=== PATIENT | male | born 1950 | race Hispanic/Latino ===

== ENCOUNTER 2024-10-11 22:53 | Emergency (ER) | payer MEDICARE, OTHER, SELFPAY ==
[2024-10-11 22:57] VITALS: BP 164/68
[2024-10-11 23:03] LABS: Glucose - Point of Care 460 mg/dl (70-99)
[2024-10-11 23:29] VITALS: BMI 25.7
--- NOTE | 2024-10-11 23:32 | ED.GENMED ---
History of Present Illness
General
Chief Complaint: Breathing Problem
Source: patient
Exam Limitations: none
Time Seen by Provider: 10/11/24 23:27
Nursing documentation reviewed up to this point in time: agreed with
History of Present Illness
History of Present Illness:
74-year-old male hypertensive diabetic on metformin 1000 mg a day nondrinker non-smoker presents with elevated blood sugar polydipsia polyuria also checked his his pulse ox it was low, he had a pulse ox from when he had COVID years ago, denies chest
pain or shortness of breath no nausea or vomiting no chest pain tells me his blood sugars usually in the 2-2 50 range, A1c was in the 7 range, no abdominal pain
Past History
Past History
ED Past Medical History: HTN and NIDDM
ED Past Surgical History: None
Social History
Tobacco: Non-smoker
Alcohol: None
Drug: None
Personal:
Living: with family
Employment: Employed
Family History
Family History: Diabetes
Review of Systems
Review of Systems
All Other Systems: Not applicable
Constitutional: Reports fatigue; Denies fever
EENT: Reports no symptoms
Respiratory: Reports no symptoms; Denies cough or trouble breathing
Cardiac: Reports no symptoms
ABD/GI: Reports no symptoms; Denies abdominal pain or diarrhea
Neurological: Reports no symptoms
Endocrine: Reports polyuria and polydipsia
Hematologic/Lymphatic: Reports no symptoms
Psychiatric: Reports no symptoms
Phy Exam
Physical Exam
Physical Exam:
Physical Exam
General: no apparent distress, not acutely ill
Neck: No jaundice
Heart: s1/s2 regular rate and rhythm, no murmur. equal radial pulses.
Lungs: no acute respiratory distress. clear bilaterally
Abdomen: Nontender
Neuro: alert and oriented. no focal neurological deficits
Skin: no rash
Psychiatric: well kept. interactive and cooperative
Extremities: no edema.
Scores
Heart Failure Risk
Heart Failure Risk Score: Not Applicable
Course
Orders/Labs/Results
Orders:
Orders
10/11/24 22:59
Accucheck Once [Bedside Glucose Monitoring-ONCE] As Directed
10/11/24 23:07
Electrocardiogram (*1) Urgent
Reason for Study: Shortness of Breath
EKG- Treatment ONCE
10/11/24 23:11
B-Hydroxybutyrate Urgent
Comprehensive Metabolic Panel Urgent
10/11/24 23:35
Add On- LAB Urgent
Tests Added?: hemoglovin a1c
10/11/24 23:36
Complete Blood Count/With Diff Urgent
Glycohemoglobin (HgbA1c) Urgent
CR Chest - 2 Views Urgent
Comment:
Reason For Exam: sob
10/11/24 23:38
Troponin I Urgent
10/12/24 00:27
0.9% Sodium Chloride 1000 ml [Nss] 1,000 ml IV BOLUS
10/12/24 01:55
METFORMIN HCl [Glucophage] 1,000 mg PO NOW STA
Abnormal Lab Results
10/11/24 10/11/24 10/11/24
23:02 23:11 23:36
WBC 4.3 L 10^3/uL
(4.8-10.8)
RBC 4.16 L 10^6/uL
(4.70-6.10)
Hgb 12.3 L g/dL
(13.0-18.0)
Hct 34.0 L %
(39.0-52.0)
RDW 15.7 H %
(11.5-14.5)
Abs Immat Gran (auto) 0.1 H 10^3/uL
(0-0.05)
Absolute Lymphs (auto) 0.9 L 10^3/uL
(1.2-3.4)
Immature Gran % 2.1 H %
(0-0.5)
Sodium 133 L mmol/L
(135-145)
Glucose 460 H* mg/dl
(70-99)
Total Bilirubin 1.5 H mg/dl
(0.2-1.3)
Alkaline Phosphatase 197 H U/L
(38-126)
POC Glucose 460 H* mg/dl
(70-99)
10/12/24
01:45
WBC
RBC
Hgb
Hct
RDW
Abs Immat Gran (auto)
Absolute Lymphs (auto)
Immature Gran %
Sodium
Glucose
Total Bilirubin
Alkaline Phosphatase
POC Glucose 328 H mg/dl
(70-99)
10/11/24 23:36
10/11/24 23:11
Vital Signs
Initial and Last Documented VS:
Initial Vital Signs
Pulse Resp BP Pulse Ox
66 20 164/68 97
10/11/24 22:57 10/11/24 22:57 10/11/24 22:57 10/11/24 22:57
Last Documented Vital Signs
Pulse Resp BP Pulse Ox
53 16 154/65 93
10/12/24 01:30 10/12/24 01:30 10/12/24 01:00 10/12/24 01:30
MDM/Problems Addressed
Differential Diagnosis Includes:
HHNK DKA uncontrolled diabetes occult pulmonary respiratory cardiac issue
MDM/Problems Addressed:
Suspect pulse ox was a spurious value at home will check EKG chest x-ray labs A1c
Chronic conditions affecting care: DM
Acute Exacerbation and/or Progression of Chronic Illness: DM and HTN
*Radiology
Radiology exam reviewed: preliminary read by ED provider
*Pulse Oximetry
Patient hypoxic: no
*EKG
Interpreted by ED Provider?: Yes
Interpretation: normal
Comparison EKG: no comparison EKG present
Heart Rate: 7
Rate: normal
Rhythm: sinus
Ischemia: no ischemia
*Planning Aide Interpretation
Rate: normal
Interpretation: normal
Heart Rate: 7
Rhythm: sinus
*Critical Care Note
Total Time (30-74mins, 75-104mins- exclusive of procedures): Not Applicable
Update Note
Update Note:
Update labs noted chest x-ray and EKG troponin noted will start on saline patient overall well-appearing suspect he can go home of his getting needs some increase in his diabetes regiment
2 AM reviewed with patient previously on glipizide that was stopped for 5 years ago due to low blood sugar he is on metformin at thousand a day has been takes in the morning shared decision making, we will increase his metformin however follow-up
with his dozer operator tomorrow or later this week
ED Attending Note
-
Portions of this chart may have been created with voice recognition software.� Occasional wrong word or��sound alike� substitutions may have occurred due to the inherent limitations of voice recognition software.
Discharge Plan
Departure
Patient Disposition: Home (Routine Discharge)
Date of Disposition: 10/12/24
Time of Disposition: 01:54
Patient with high blood pressure during this ER visit?: No
Condition: Good
Discharge Problem:
Type 2 diabetes mellitus without complications, Hyperglycemia due to type 2 diabetes mellitus
Instructions: Type 2 Diabetes (DC)
Prescriptions:
New
metformin 1,000 mg tablet
1,000 mg PO BIDWMEAL Qty: 90 6RF
No Action
atorvastatin 40 MG tablet
20 mg PO HS
amlodipine 5 MG tablet
7.5 mg PO HS
tamsulosin 0.4 mg Capsule
0.8 mg PO AMHS
tadalafil 5 mg Tablet
5 mg PO DIRECTED
Rx Instructions:
twice a week
meclizine 25 mg tablet
25 mg PO TID PRN (Reason: dizziness) Qty: 14 0RF
Referrals:
Beto Rodriguez MD [Family Provider] - Next open appointment
Activity Restrictions/Additional Instructions:
Increase your metformin to 1000 mg twice a day with meals, call your primary care provider tomorrow to arrange follow-up care
Interventions
Interventions:
*Risk Screen - Suicide Last Done: 10/11/24 22:57
*General Assessment Last Done: 10/11/24 23:29
*Neglect/Abuse Screening Last Done: 10/11/24 22:57
*ED- Fall Risk Assessment Last Done: 10/11/24 23:29
*ED COVID-19 Vaccine History Last Done: 10/11/24 23:29
ED- Cardiac Assessment Last Done: 10/11/24 23:57
ED- Neurological Assessment Last Done: 10/11/24 23:57
ED- Pulmonary Assessment Last Done: 10/11/24 23:57
Discharge Date and Time
Print Language: UKRAINIAN
[2024-10-11 23:40] VITALS: BP 167/67
[2024-10-11 23:58] LABS: % Basophils 0.2 % (0-2); % Eosinophils 2.1 % (0-6); % Immature Granulocytes 2.1 % (0-0.5); % Lymphocytes 21.4 % (20.5-51.1); % Monocytes 7.2 % (1.7-9.3); Absolute Eosinophils 0.1 10^3/uL (0-0.7); Absolute Immature Granulocytes 0.1 10^3/uL (0-0.05); Absolute Lymphocytes 0.9 10^3/uL (1.2-3.4); Absolute Monocytes 0.3 10^3/uL (0.1-0.6); Absolute Neutrophils 2.9 10^3/uL (1.4-6.5); Hemoglobin 12.3 g/dL (13.0-18.0); Mean Corp Hgb Conc. 36.2 g/dL (33.0-37.0); Mean Corpuscular Hgb 29.6 pg (27.0-31.0); Mean Corpuscular Volume 81.7 fL (80.0-94.0); Mean Platelet Volume 10.1 fL (7.4-10.4); Nucleated Red Blood Cells % 0 % (-); Platelet Count 154 10^3/uL (130-400); Red Blood Cell Count 4.16 10^6/uL (4.70-6.10); Red Cell Dist. Width 15.7 % (11.5-14.5); White Blood Cell Count 4.3 10^3/uL (4.8-10.8)
[2024-10-12] VITALS: BP 150/64
[2024-10-12 00:19] LABS: ALT (SGPT) 16 U/L (0-50); AST (SGOT) 20 U/L (17-59); Albumin 4.2 g/dl (3.5-5.0); Alkaline Phosphatase 197 U/L (38-126); B-Hydroxybutyrate 0.18 mmol/L (0.02-0.27); Blood Urea Nitrogen 14 mg/dl (9-20); Calcium 9.4 mg/dl (8.4-10.2); Carbon Dioxide 24 mmol/L (22-30); Chloride 99 mmol/L (98-107); Estimated Creatinine Clearance 79 ml/min; Glucose 460 mg/dl (70-99); Potassium 4.7 mmol/L (3.5-5.1); Sodium 133 mmol/L (135-145); Total Bilirubin 1.5 mg/dl (0.2-1.3); Total Protein 6.3 g/dl (6.3-8.2); eGFR > 60.00
[2024-10-12 00:19] LABS: Troponin I < 0.012 ng/ml
[2024-10-12] MEDS: NSS 1000 IV (00:31)
[2024-10-12 01:00] VITALS: BP 154/65
[2024-10-12 01:46] LABS: Glucose - Point of Care 328 mg/dl (70-99)
[2024-10-12 02:00] VITALS: BP 150/64
[2024-10-12] MEDS: GLUCOPHAGE 1000 MG PO (02:25)
[2024-10-12 08:34] LABS: Glycohemoglobin (HgbA1c) 7.3 % (4.0-5.6)
== END 2024-10-12 02:33 | disposition home or self-care (01) ==
LOC: EMR 22:53
PROVIDERS: Emergency Medicine; EMERGENCY PHYSICIAN Emergency Medicine; FAMILY PHYSICIAN Internal Medicine
DX: E11.65 Type 2 diabetes mellitus with hyperglycemia (principal); I10 Essential (primary) hypertension; Z79.84 Long term (current) use of oral hypoglycemic drugs
CPT/HCPCS: 96360; 99285; 71046; 80053; 82010; 82962; 83036; 84484; 85025; 93005

== ENCOUNTER → 2025-01-21 12:21 | Outpatient (REF) | payer MEDICARE, OTHER, SELFPAY | LOC: RAD 12:21 | PROVIDERS: ATTENDING PHYSICIAN Internal Medicine; FAMILY PHYSICIAN Internal Medicine | DX: M25.552 Pain in left hip (principal) | CPT/HCPCS: 73502 ==

== ENCOUNTER 2025-04-27 09:19 | Emergency (ER) | payer MEDICARE, OTHER, SELFPAY ==
[2025-04-27 09:21] VITALS: BP 182/88
[2025-04-27] MEDS: ROXICODONE 5 MG PO (10:42)
--- NOTE | 2025-04-27 12:33 | ED.GENMED ---
History of Present Illness
General
Chief Complaint: Cancer Problem
Time Seen by Provider: 04/27/25 10:19
History of Present Illness
History of Present Illness:
75-year-old male with history of metastatic prostate cancer presents to the emergency department upon referral with [facility] due to concern for worsening left gluteal and left leg pain. Most recent PET scan was in January showing T2
and left femoral neck that is static lytic lesions. He began radiation treatments last week and underwent 5 treatments, over the weekend left gluteal pain began to worsen making it difficult to walk. Pain seems to be worse at nighttime and
intermittently will resolve without obvious explanation. He took oxycodone this morning at 4 AM with improvement. He does report some urinary dribbling but denies sensation of incomplete voiding or lower extremity paresthesias.
Past History
Past History
ED Past Medical History: HTN and NIDDM
ED Past Surgical History: None
Social History
Tobacco: Non-smoker
Alcohol: None
Drug: None
Personal:
Living: with family
Employment: Employed
Family History
Family History: Diabetes
Review of Systems
Review of Systems
Allergies reviewed?: Yes
All Other Systems: ROS reviewed and negative except as documented in HPI and ROS
Phy Exam
Physical Exam
Physical Exam:
GEN: Well appearing, NAD, WDWN
HEENT: Oral mucosa moist, no scleral icterus
Cardiac: Regular rate
Lung: No respiratory distress, no tachypnea
MSK: No gross deformity or injuries. Nontender to palpation of the left gluteal region or left upper leg
Skin: Good color, no pallor or jaundice, no rashes
Neuro: AO x3, moves all extremities freely. Bilateral lower extremity strength is 5 out of 5 in all higuera, patellar reflexes are 1+ bilaterally, sensation is intact all distributions to light touch. Patient able to ambulate without difficulty
Psych: Calm, cooperative
Course
Orders/Labs/Results
Orders:
Orders
04/27/25 10:32
Oxycodone [Roxicodone] 5 mg PO NOW STA
04/27/25 10:44
CR Hip - LT w/wo Pel 2-3 Vw* Urgent
Comment:
Reason For Exam: L hip pain, known femoral head met
Include a pelvis x-ray?: Yes
CR Lumbar Spine Comp Min 4 Vw* Routine
Comment:
Reason For Exam: L hip/back pain
Vital Signs
Initial and Last Documented VS:
Initial Vital Signs
Temp Pulse Resp BP Pulse Ox
98.3 F 63 16 182/88 100
04/27/25 09:21 04/27/25 09:21 04/27/25 09:21 04/27/25 09:21 04/27/25 09:21
Last Documented Vital Signs
Temp Pulse Resp BP Pulse Ox
98.3 F 63 16 182/88 100
04/27/25 09:21 04/27/25 09:21 04/27/25 09:21 04/27/25 09:21 04/27/25 12:33
MDM/Problems Addressed
MDM/Problems Addressed:
Bladder scan shows no evidence of urinary retention. At this time I suspect that his pain is predominantly from the known lytic lesion of the hip. Plain films reveal extensive blastic lesions but no evidence of lytic lesions. He has no clinical
symptoms of cord compression at this time thus there is no immediate indication for urgent MRI from the ED standpoint. I did communicate these findings with his radiation oncology team who will help to facilitate an outpatient MRI. Per radiation
oncology no indication for steroid treatments at this juncture. Strict ED return parameters discussed with the patient
*Pulse Oximetry
SaO2: 100
Oxygen Mode of Delivery: Room air
Patient hypoxic: no
*Critical Care Note
Total Time (30-74mins, 75-104mins- exclusive of procedures): Not Applicable
ED Attending Note
-
Portions of this chart may have been created with voice recognition software.� Occasional wrong word or��sound alike� substitutions may have occurred due to the inherent limitations of voice recognition software.
Discharge Plan
Departure
Patient Disposition: Home (Routine Discharge)
Date of Disposition: 04/27/25
Time of Disposition: 12:33
Patient with high blood pressure during this ER visit?: No
Discharge Problem:
Pain from bone metastases
Instructions: Bone metastases
Prescriptions:
New
oxycodone 5 mg tablet
5 mg PO Q8H PRN (Reason: Pain) Qty: 10 0RF
No Action
atorvastatin 40 MG tablet
20 mg PO HS
amlodipine 5 MG tablet
7.5 mg PO HS
tamsulosin 0.4 mg Capsule
0.8 mg PO AMHS
tadalafil 5 mg Tablet
5 mg PO DIRECTED
Rx Instructions:
twice a week
meclizine 25 mg tablet
25 mg PO TID PRN (Reason: dizziness) Qty: 14 0RF
metformin 1,000 mg tablet
1,000 mg PO BIDWMEAL Qty: 90 6RF
Referrals:
Beto Rodriguez MD [Family Provider, Internal Medicine]
Activity Restrictions/Additional Instructions:
Take the oxycodone as prescribed
Follow-up with your radiation oncology team to discuss an outpatient MRI
If at any point you are unable to empty your bladder, you develop severe numbness or weakness of your legs, or numbness to the inner thighs on both legs return to the emergency department immediately
Interventions
Interventions:
*Risk Screen - Suicide Last Done: 04/27/25 09:25
*Neglect/Abuse Screening Last Done: 04/27/25 09:25
*Nursing Disposition Last Done: 04/27/25 12:39
ED-Musculoskeletal Assessment Last Done: 04/27/25 10:47
Discharge Date and Time
Discharge Date/Time: 04/27/25 12:39
Print Language: KITTITIAN
== END 2025-04-27 12:39 | disposition home or self-care (01) ==
LOC: EMR 09:19
PROVIDERS: EMERGENCY PHYSICIAN Emergency Medicine; FAMILY PHYSICIAN Internal Medicine
DX: G89.3 Neoplasm related pain (acute) (chronic) (principal); C61 Malignant neoplasm of prostate; C79.51 Secondary malignant neoplasm of bone; I10 Essential (primary) hypertension; E11.9 Type 2 diabetes mellitus without complications
CPT/HCPCS: 99284; 72110; 73502

== ENCOUNTER → 2025-05-06 17:34 | Outpatient (REF) | payer MEDICARE, OTHER, SELFPAY | LOC: MRI 17:34 | PROVIDERS: ATTENDING PHYSICIAN Family Medicine Geriatric Medicine; FAMILY PHYSICIAN Internal Medicine | DX: C79.51 Secondary malignant neoplasm of bone (principal); C61 Malignant neoplasm of prostate | CPT/HCPCS: 72157; 72158; A9575 ==

== ENCOUNTER 2025-06-15 02:15 | Emergency (ER) | payer MEDICARE, OTHER, SELFPAY ==
[2025-06-15 02:37] VITALS: BP 171/89
[2025-06-15 03:27] VITALS: BMI 26.7
[2025-06-15 03:38] VITALS: BP 174/74
[2025-06-15 03:39] VITALS: BMI 25.7
[2025-06-15] MEDS: DILAUDID 1 MG IV (04:33)
[2025-06-15 05:15] VITALS: BP 184/85
[2025-06-15] MEDS: ZOFRAN 4 MG IV (05:27)
[2025-06-15] MEDS: DILAUDID 0.5 MG IV (05:28)
[2025-06-15 05:45] LABS: Hematocrit 31.4 % (39.0-52.0); Hemoglobin 11.1 g/dL (13.0-18.0); Mean Corp Hgb Conc. 35.4 g/dL (33.0-37.0); Mean Corpuscular Volume 79.5 fL (80.0-94.0); Nucleated Red Blood Cells % 0 % (-); Platelet Count 125 10^3/uL (130-400); Red Cell Dist. Width 15.7 % (11.5-14.5)
[2025-06-15 06:12] LABS: ALT (SGPT) 15 U/L (0-50); AST (SGOT) 17 U/L (17-59); Albumin 4.3 g/dl (3.5-5.0); Alkaline Phosphatase 75 U/L (38-126); Blood Urea Nitrogen 18 mg/dl (9-20); Calcium 8.9 mg/dl (8.4-10.2); Carbon Dioxide 23 mmol/L (22-30); Chloride 98 mmol/L (98-107); Estimated Creatinine Clearance 88 ml/min; Glucose 241 mg/dl (70-99); Potassium 4.5 mmol/L (3.5-5.1); Sodium 129 mmol/L (135-145); Total Protein 6.5 g/dl (6.3-8.2); eGFR > 60.00
--- NOTE | 2025-06-15 06:16 | ED.GENMED ---
History of Present Illness
General
Chief Complaint: Generalized Pain
Time Seen by Provider: 06/15/25 06:16
History of Present Illness
History of Present Illness:
FOCUSED PAST MEDICAL HISTORY
- Stage IV prostate cancer on radiation, diabetes
REVIEW OF OLD RECORDS
- I reviewed records, the patient was seen in the emergency department 04/27/2025 related to worsening left gluteal/leg pain. PET/CT in January showed a T2 and left femoral neck metastatic lesions.
- 05/17/2025 T-spine MRI showed extensive patchy and confluent sclerotic metastatic lesions with no fracture as well as in the lumbar and sacral regions
Note:
CHIEF COMPLAINT(S)
Worsening lower back pain.
HISTORY OF PRESENT ILLNESS
The patient is a 75-year-old male with a known history of metastatic prostate cancer, presenting to the emergency department with worsening lower back pain. The patient reports the pain as a 6 to 7 out of 10 on a scale of severity, noting that it is
particularly unbearable at night, making it difficult to sleep. The pain is located primarily in the lower back, specifically on the lumbar left side. The patient has recently completed a course of five radiation treatments for pain management, with
the last session finished yesterday. Despite these treatments, the pain persists.
The patient began hormone therapy in late December, following the identification of metastases to the spine on MRI. The patients prostate-specific antigen (PSA) was initially 191 and has since decreased to 0.06 as of about three weeks ago. He reports
receiving narcotic pain medication intravenously during this visit, which has provided some relief. However, the patient expresses concern about the intensity of the pain worsening once more if discharged and relying solely on home medications.
PAST MEDICAL AND SURGICAL HISTORY
History of metastatic prostate cancer with bone involvement.
ADDITIONAL HISTORY OBTAINED FROM SOURCES OTHER THAN THE PATIENT
The patient�s son is present and provides additional context. He noted the family�s experience with prior emergency visits, particularly the transfer from another facility for expedited care.
CHRONIC MEDICAL CONDITIONS SIGNIFICANTLY AFFECTING CARE
Metastatic prostate cancer.
MEDICATIONS
The patient has narcotic pain medication available at home.
PHYSICAL EXAM
General: Slight discomfort, managed with IV narcotics.
Skin: Warm, dry.
Head: Normocephalic, atraumatic.
Neck: Supple, trachea midline.
Eye, Ears, Nose, Mouth, and Throat: Oral mucosa moist.
Cardiovascular: Normal peripheral perfusion, No edema.
Respiratory: Respirations are non-labored.
Gastrointestinal: Abdomen nondistended.
Back: Mild tenderness in the upper left gluteal region
Musculoskeletal: As above
Neurological: Alert and oriented to person, place, time, and situation. 5 out of 5 strength in all extremities, L5 and S1 strength is very good in the left lower
Psychiatric: Cooperative, appropriate mood & affect.
PROBLEM LIST
Acute:
- Worsening lower back pain due to metastatic disease.
Chronic:
- Metastatic prostate cancer.
PLAN
Continue current pain relief with intravenous narcotics in the emergency setting, and reassess pain levels in one hour to decide on possible discharge or need for inpatient care. Consider consultation with touch up painter for chronic pain
control related to cancer.
DIFFERENTIAL DIAGNOSIS
The Differential Diagnosis includes, in no particular order and is not limited to:
1. Metastatic bone pain.
2. Spinal cord compression.
3. Pathological fracture.
4. Osteoblastic lesions from prostate cancer.
5. Vertebral metastasis.
6. Prostatitis.
7. Bony metastasis worsening.
8. Lower back strain.
9. Degenerative joint disease.
10. Sacroiliitis.
SUMMARY OF ENCOUNTER
The patient, a 75-year-old male with a history of metastatic prostate cancer, presented to the emergency department with worsening lower back pain, reporting a severity of 6 to 7 out of 10. He recently completed radiation therapy for pain management
but continues to experience significant discomfort, particularly at night. In the emergency department, the patient received narcotic pain medication intravenously, which provided relief. The patients pain is primarily located in the lower back on
the lumbar left side. He has available oxycodone at home and was advised on taking the medication as needed for severe pain.
DISPOSITION
Discharge.
ASSESSMENT
The patients cancer-related lower back pain is likely due to metastatic prostate cancer involving the bones.
EMERGENCY TREATMENTS ADMINISTERED
Intravenous narcotic pain medication was administered, providing some relief to the patient.
REASSESSMENT
The patient reported feeling more comfortable following administration of intravenous narcotic pain medication.
PLAN
The patient was advised to continue taking oxycodone at home as needed for pain control, with the option to take two pills for severe pain if necessary. Discharge paperwork was prepared, and the patient and family were informed about managing pain
at home.
PATIENT EDUCATION AND COUNSELING
The patient and family were counseled on managing cancer-related pain at home with oxycodone, emphasizing the need to avoid taking medication when feeling sedated and to use as directed for severe pain.
FOLLOW-UP INSTRUCTIONS
Arrange for prompt follow-up with oncology or primary care provider to discuss ongoing pain management and monitoring of prostate cancer.
MEDICATION RECONCILIATION
Oxycodone 5 mg is available at home, with guidance provided to take one or two pills as needed for severe pain.
MEDICAL DECISION MAKING
- Complexity of Data Reviewed: Chronic conditions affecting care include metastatic prostate cancer. Differential diagnosis considerations included metastatic bone pain and spinal cord compression.
- Data:
- Category 2: Information obtained from the patients son regarding prior emergency visits and current management.
- Risk: Prescription medication management was considered, with oxycodone being prescribed for outpatient management of cancer-related pain. Decisions were made regarding the safe discharge of the patient with instructions for pain management at
home.
DIAGNOSIS
- Cancer-related pain due to metastatic prostate cancer (ICD-10: G89.3).
LABS
- White count 4.7, hemoglobin 11.1, sodium 129, glucose 241
UPDATE
- Patient received 1 mg and 0.5 mg of Dilaudid prior to my evaluation
- He currently appears fairly comfortable describes 6 out of 10 pain
- On reassessment at 7:25 AM, the patient reports 4 out of 10 pain
- He states that he has enough oxycodone to last and has been told that he could increase his oxycodone to 10 mg
Past History
Past History
ED Past Medical History: HTN and NIDDM
ED Past Surgical History: None
Social History
Tobacco: Non-smoker
Alcohol: None
Drug: None
Personal:
Living: with family
Employment: Employed
Family History
Family History: Diabetes
Phy Exam
Physical Exam
Physical Exam:
See HPI
Course
Orders/Labs/Results
Orders:
Orders
06/15/25 04:26
HYDROmorphone [Dilaudid] 1 mg IV NOW STA
06/15/25 05:20
HYDROmorphone [Dilaudid] 0.5 mg IV NOW STA
06/15/25 05:21
Ondansetron Injectable [Zofran] 4 mg IV NOW STA
06/15/25 05:37
CMP [Comprehensive Metabolic Panel] Urgent
Complete Blood Count/With Diff Urgent
Abnormal Lab Results
06/15/25
05:37
WBC 4.7 L 10^3/uL
(4.8-10.8)
RBC 3.95 L 10^6/uL
(4.70-6.10)
Hgb 11.1 L g/dL
(13.0-18.0)
Hct 31.4 L %
(39.0-52.0)
MCV 79.5 L fL
(80.0-94.0)
RDW 15.7 H %
(11.5-14.5)
Plt Count 125 L 10^3/uL
(130-400)
Absolute Lymphs (auto) 0.5 L 10^3/uL
(1.2-3.4)
Immature Gran % 0.9 H %
(0-0.5)
Neutrophils % 80.2 H %
(42.2-75.2)
Lymphocytes % 10.3 L %
(20.5-51.1)
Sodium 129 L mmol/L
(135-145)
Glucose 241 H mg/dl
(70-99)
06/15/25 05:37
06/15/25 05:37
Vital Signs
Initial and Last Documented VS:
Initial Vital Signs
Temp Pulse Resp BP Pulse Ox
36.4 C 87 20 171/89 99
06/15/25 02:37 06/15/25 02:37 06/15/25 02:37 06/15/25 02:37 06/15/25 02:37
Last Documented Vital Signs
Temp Pulse Resp BP Pulse Ox
36.4 C 87 20 184/85 96
06/15/25 02:37 06/15/25 02:37 06/15/25 02:37 06/15/25 05:15 06/15/25 06:20
*Pulse Oximetry
SaO2: 96
Oxygen Mode of Delivery: Room air
Patient hypoxic: no
*Critical Care Note
Total Time (30-74mins, 75-104mins- exclusive of procedures): Not Applicable
ED Attending Note
-
Portions of this chart may have been created with voice recognition software.� Occasional wrong word or��sound alike� substitutions may have occurred due to the inherent limitations of voice recognition software.
Discharge Plan
Departure
Patient Disposition: Home (Routine Discharge)
Date of Disposition: 06/15/25
Time of Disposition: 07:25
Patient with high blood pressure during this ER visit?: Yes
Discharge Problem:
Cancer-related breakthrough pain
Instructions: Chronic pain, BLOOD PRESSURE
Prescriptions:
No Action
atorvastatin 40 MG tablet
20 mg PO HS
amlodipine 5 MG tablet
10 mg PO HS
tamsulosin 0.4 mg Capsule
0.8 mg PO AMHS
tadalafil 5 mg Tablet
5 mg PO DIRECTED
Rx Instructions:
twice a week
metformin 1,000 mg tablet
1,000 mg PO BIDWMEAL Qty: 90 6RF
lorazepam 1 mg Tablet
1 mg PO PRN PRN (Reason: prior to scans or MRI's)
Xgeva 120 mg/1.7 mL (70 mg/mL) Solution
120 mg SC [id number]
Caltrate 600 plus D 600 mg-20 mcg (800 unit) Tablet,Chewable
1 tab PO DAILY
enzalutamide 80 mg Tablet
160 mg PO DAILY
relugolix 120 mg Tablet
120 mg PO DAILY
oxycodone 5 mg tablet
5 mg PO Q4H
Referrals:
Beto Rodriguez MD [Family Provider, Internal Medicine]
Activity Restrictions/Additional Instructions:
You could take 2 instead of just 1 oxycodone at a time for the pain. Follow-up with your doctors at [facility]. Return for other concerns. Basic blood work shows a glucose of 241 and sodium of slightly low at 129 but otherwise is unremarkable.
Interventions
Interventions:
*General Assessment Last Done: 06/15/25 02:37
*Neglect/Abuse Screening Last Done: 06/15/25 02:37
*ED COVID-19 Vaccine History Last Done: 06/15/25 02:37
*ED Influenza Vaccine History Last Done: 06/15/25 02:37
[facility] Fall Risk Assessment Tool Last Done: 06/15/25 03:27
*Risk Screen - Suicide (C-SSRS) Last Done: 06/15/25 02:37
Discharge Date and Time
Print Language: MICRONESIAN
[2025-06-15] MEDS: ZOFRAN ODT (ORALLY DISINTEGRATING) 4 MG PO (07:47)
== END 2025-06-15 07:56 | disposition home or self-care (01) ==
LOC: EMR 02:15
PROVIDERS: Physician Assistant; EMERGENCY PHYSICIAN Emergency Medicine; FAMILY PHYSICIAN Internal Medicine
DX: G89.3 Neoplasm related pain (acute) (chronic) (principal); C61 Malignant neoplasm of prostate; C79.51 Secondary malignant neoplasm of bone; E11.9 Type 2 diabetes mellitus without complications; I10 Essential (primary) hypertension; Z79.84 Long term (current) use of oral hypoglycemic drugs; Z83.3 Family history of diabetes mellitus
CPT/HCPCS: 99284; 96374; 96375; 96376; 80053; 85025

== ENCOUNTER 2025-06-25 23:54 | Emergency (ER) | payer MEDICARE, OTHER, SELFPAY ==
[2025-06-25 23:56] VITALS: BP 162/80
[2025-06-26 00:10] VITALS: BMI 25.5
[2025-06-26] MEDS: DILAUDID 1 MG IV ×2 (00:20→01:13)
--- NOTE | 2025-06-26 00:20 | ED.GENMED ---
History of Present Illness
General
Chief Complaint: Back Pain
Source: patient, records and family
Exam Limitations: none
Time Seen by Provider: 06/26/25 00:04
Nursing documentation reviewed up to this point in time: agreed with
History of Present Illness
History of Present Illness:
75-year-old male presents with low back pain acute on chronic problem apparently fell today has a history of metastatic prostate cancer to his back and hip status post radiation last week he is on oxycodone 10 every 6 states is not really helping
too much, he would move his legs, able to ambulate with with some assistance
Past History
Past History
ED Past Medical History: Cancer, HTN and NIDDM
ED Past Surgical History: None
Social History
Tobacco: Non-smoker
Alcohol: None
Drug: None
Personal:
Living: with family
Employment: Employed
Family History
Family History: Diabetes
Review of Systems
Review of Systems
All Other Systems: Not applicable
Constitutional: Denies fever or fatigue
ABD/GI: Denies abdominal pain
Musculoskeletal: Reports back pain
Neurological: Reports numbness; Denies headache or weakness
Phy Exam
Physical Exam
Physical Exam:
Physical Exam
General: Nontoxic elderly man no overt signs of head or neck trauma
Neck: No tongue
Heart: Regular
Lungs: no acute respiratory distress.
Abdomen: Soft nontender
Neuro: alert and oriented. Able to lift his legs off the bed bilaterally
Skin: no rash
Psychiatric: well kept. interactive and cooperative
Extremities: Trace edema no pain with range of motion of his hips bilateral
Course
Orders/Labs/Results
Orders:
Orders
06/26/25 00:12
HYDROmorphone [Dilaudid] 1 mg IV NOW STA
06/26/25 00:13
Lumbar Spine, 2 or 3 View [CR Lumbar Spine 2 Or 3 Views] Urgent
Comment:
Reason For Exam: fall mets
06/26/25 01:07
HYDROmorphone [Dilaudid] 1 mg IV NOW STA
Vital Signs
Initial and Last Documented VS:
Initial Vital Signs
Temp Pulse Resp BP Pulse Ox
97.6 F 76 20 162/80 98
06/25/25 23:56 06/25/25 23:56 06/25/25 23:56 06/25/25 23:56 06/25/25 23:56
Last Documented Vital Signs
Temp Pulse Resp BP Pulse Ox
97.6 F 71 18 162/80 96
06/25/25 23:56 06/26/25 01:17 06/26/25 01:17 06/25/25 23:56 06/26/25 01:15
MDM/Problems Addressed
Differential Diagnosis Includes:
Contusion, cancer pain, grossly neurologically intact--he is able to lift his legs off the bed
MDM/Problems Addressed:
Back pain
Chronic conditions affecting care:
Prostate cancer
Acute Exacerbation and/or Progression of Chronic Illness:
Prostate cancer
*Radiology
Radiology exam reviewed: preliminary read by ED provider
*Pulse Oximetry
SaO2: 98
Oxygen Mode of Delivery: Room air
Patient hypoxic: no
*Critical Care Note
Total Time (30-74mins, 75-104mins- exclusive of procedures): Not Applicable
Update Note
Update Note:
Update x-ray noted will increase his outpatient pain meds encouraged him to follow-up with his outpatient physicians
Patient resting comfortably, son updated
ED Attending Note
-
Portions of this chart may have been created with voice recognition software.� Occasional wrong word or��sound alike� substitutions may have occurred due to the inherent limitations of voice recognition software.
Discharge Plan
Departure
Patient Disposition: Home (Routine Discharge)
Date of Disposition: 06/26/25
Time of Disposition: 00:51
Patient with high blood pressure during this ER visit?: No
Condition: Good
Discharge Problem:
Cancer associated pain
Instructions: Cancer Pain Syndromes (DC)
Prescriptions:
New
hydromorphone [Dilaudid] 2 mg tablet
2 mg PO Q6H PRN (Reason: Pain) Qty: 14 0RF
No Action
atorvastatin 40 MG tablet
20 mg PO HS
amlodipine 5 MG tablet
10 mg PO HS
tamsulosin 0.4 mg Capsule
0.8 mg PO AMHS
tadalafil 5 mg Tablet
5 mg PO DIRECTED
Rx Instructions:
twice a week
metformin 1,000 mg tablet
1,000 mg PO BIDWMEAL Qty: 90 6RF
lorazepam 1 mg Tablet
1 mg PO PRN PRN (Reason: prior to scans or MRI's)
Xgeva 120 mg/1.7 mL (70 mg/mL) Solution
120 mg SC [id number]
Caltrate 600 plus D 600 mg-20 mcg (800 unit) Tablet,Chewable
1 tab PO DAILY
enzalutamide 80 mg Tablet
160 mg PO DAILY
relugolix 120 mg Tablet
120 mg PO DAILY
oxycodone 5 mg tablet
5 mg PO Q4H
ondansetron 4 mg tablet,disintegrating
4 mg PO TIDPRN PRN (Reason: nausea/vomiting) Qty: 14 0RF
Activity Restrictions/Additional Instructions:
Call your primary care provider and oncologist tomorrow to discuss your symptoms
You can use Dilaudid 2 mg every 6 hours as needed for pain instead of oxycodone
Interventions
Interventions:
*General Assessment Last Done: 06/25/25 23:56
*Neglect/Abuse Screening Last Done: 06/25/25 23:56
*ED COVID-19 Vaccine History Last Done: 06/26/25 00:10
*ED Influenza Vaccine History Last Done: 06/26/25 00:10
[facility] Fall Risk Assessment Tool Last Done: 06/26/25 00:10
*Risk Screen - Suicide (C-SSRS) Last Done: 06/25/25 23:56
ED-Musculoskeletal Assessment Last Done: 06/26/25 00:28
Discharge Date and Time
Print Language: SWISS
[2025-06-26 02:33] VITALS: BP 181/76
== END 2025-06-26 02:47 | disposition home or self-care (01) ==
LOC: EMR 23:54
PROVIDERS: EMERGENCY PHYSICIAN Emergency Medicine; FAMILY PHYSICIAN Internal Medicine
DX: G89.3 Neoplasm related pain (acute) (chronic) (principal); M54.9 Dorsalgia, unspecified; C61 Malignant neoplasm of prostate; C79.89 Secondary malignant neoplasm of other specified sites; Z79.899 Other long term (current) drug therapy; Z92.3 Personal history of irradiation
CPT/HCPCS: 99284; 96374; 96376; 72100

== ENCOUNTER 2025-06-29 08:10 | Inpatient (IN) | payer MEDICARE, OTHER, SELFPAY ==
[2025-06-28 06:25] VITALS: BMI 25.6
[2025-06-28 06:33] VITALS: BP 159/86
[2025-06-28 07:29] LABS: Urine Character Clear (Clear)
[2025-06-28 07:32] LABS: Hematocrit 30.9 % (39.0-52.0); Hemoglobin 11.1 g/dL (13.0-18.0); Mean Corp Hgb Conc. 35.9 g/dL (33.0-37.0); Mean Corpuscular Volume 82.2 fL (80.0-94.0); Nucleated Red Blood Cells % 0.6 % (-); Platelet Count 135 10^3/uL (130-400); Red Cell Dist. Width 17.2 % (11.5-14.5)
[2025-06-28 07:33] LABS: ALT (SGPT) 13 U/L (0-50); AST (SGOT) 14 U/L (17-59); Albumin 4.0 g/dl (3.5-5.0); Alkaline Phosphatase 59 U/L (38-126); Blood Urea Nitrogen 19 mg/dl (9-20); Calcium 8.7 mg/dl (8.4-10.2); Carbon Dioxide 29 mmol/L (22-30); Chloride 97 mmol/L (98-107); Glucose 232 mg/dl (70-99); Lipase 16 U/L (23-300); Potassium 4.9 mmol/L (3.5-5.1); Sodium 129 mmol/L (135-145); Total Protein 6.2 g/dl (6.3-8.2); eGFR > 60.00
[2025-06-28 08:13] VITALS: BP 154/72
[2025-06-28 08:19] LABS: Urine Red Blood Cell 0-2 /HPF (0-2); Urine Squamous Cell 0-2 /LPF (Few); Urine Urothelial Cell 0-2 /LPF (FEW)
--- NOTE | 2025-06-28 08:59 | ED.GENMED ---
History of Present Illness
General
Chief Complaint: Male Genito-Urinary Symptoms
Source: patient
Exam Limitations: none
Time Seen by Provider: 06/28/25 08:03
Nursing documentation reviewed up to this point in time: agreed with
History of Present Illness
History of Present Illness:
Patient with history of metastatic prostate cancer, status post radiation therapy, with last treatment 2 weeks ago, presents to ED secondary to worsening right lower back pain, which started shortly after starting radiation therapy. Patient was
evaluated in ED for similar complaint 1 week ago and was prescribed pain medication, i.e. Percocet, with improvement. However, over the past 2 days, along with lower back pain, patient has been experiencing painful urination with sensation of
incomplete voiding sensation, which has not occurred previously. Patient does report having had bowel movement yesterday. Denies abdominal pain. Denies nausea or vomiting. Denies weakness. Denies loss of sensation. Denies headache. Denies
urinary or bowel incontinence.
Past History
Past History
ED Past Medical History: Cancer, HTN and NIDDM
ED Past Surgical History: None
Social History
Tobacco: Non-smoker
Alcohol: None
Drug: None
Personal:
Living: with family
Employment: Employed
Family History
Family History: Diabetes
Review of Systems
Review of Systems
Allergies reviewed?: Yes
All Other Systems: ROS reviewed and negative except as documented in HPI and ROS
Constitutional: Reports no symptoms; Denies fever
Cardiac: Reports no symptoms
ABD/GI: Reports no symptoms; Denies vomiting, diarrhea or constipated
: Reports dysuria and difficulty voiding
Musculoskeletal: Reports no symptoms
Skin: Reports no symptoms
Neurological: Reports no symptoms
Phy Exam
Physical Exam
Physical Exam:
Physical Exam
General: mild painful distress, not acutely ill. afebrile
Head: nc/at. eomi
Neck: supple. normal range of motion.
Abdomen: normal bowel sounds. not tender.
Back: no midline tenderness. diffuse lower back tenderness to palpation
Neuro: alert and oriented x 3. no focal neurological deficits
Skin: no rash
Psychiatric: well kept. interactive and cooperative
Extremities: no edema. no calf tenderness.
Course
Orders/Labs/Results
Orders:
Orders
06/28/25 06:41
IV Insert/Care/Rem.- Treatment PRN
Straight cath- Treatment ONCE
06/28/25 06:42
Bladder Scan- Treatment ONCE
06/28/25 06:47
Complete Blood Count/With Diff Urgent
Comprehensive Metabolic Panel Urgent
Lipase Urgent
Influenza A+B Rapid Molecular Urgent
CONSUELO Source: Nasal Swab
Specimen Description:
Date Specimen was Collected: 06/28/25
Time Specimen was Collected: 06:41
06/28/25 06:55
Urinalysis Reflex To Culture Urgent
Date Specimen was Collected: 06/28/25
Time Specimen was Collected: 06:41
Urine Microscopic Reflex Cult Urgent
06/28/25 08:57
Bladder Scan- Treatment ONCE
0.9% Sodium Chloride 250 ml [Nss] 250 ml IV BOLUS
HYDROmorphone [Dilaudid] 0.5 mg IV NOW STA
Ketorolac [Toradol] 15 mg IV NOW STA
06/28/25 10:11
Acetaminophen [Tylenol] 1,000 mg PO NOW STA
Dexamethasone Sod Phosphate [Decadron] 10 mg IV NOW STA
diazePAM [Valium Injection] 2 mg IV NOW STA
06/28/25 11:49
HYDROmorphone [Dilaudid] 0.5 mg IV NOW STA
06/28/25 12:40
Admit/Transfer Patient As Directed
Co-Sign Provider:
Level of Care: Observation services
Assign to:: Medical/Surgical
Physician / Group: ned
Diagnosis: lumbar mets
Code Status As Directed
Resuscitation Status: Full Code
PRN Pain Medication Management As Directed
May give lesser potent ordered pain med per pt: Yes
preference::
Protocol:: Medication orders for pain may be administered in a
manner that supports deferring to patient preference
when the pt is:
- Requesting an ordered lesser potent pain medication.
Least to most potent pain medications are defined
as: acetaminophen < NSAID < tramadol < opioids
(morphine, oxycodone, hydromorphone).
- Requesting a lesser dose of the same medication IF
ORDERED.
- Requesting a less intrusive route of administration
if both routes are prescribed by the provider (PO <
IV).
06/28/25 13:38
Acetaminophen [Tylenol] 650 mg PO Q4HPRN PRN
Dextrose 50%-Water [Dextrose 50% Syringe] 12.5 grams IV [id number] PRN
Diazepam [Valium] 2 mg PO TIDPRN PRN
Glucagon [GlucaGen] 1 mg IM PRN PRN
Ketorolac [Toradol] 10 mg IV Q6HPRN PRN
Lidocaine [Lidocaine 4% Patch] 1 patch TOPICAL DAILY
Apply Lidocaine patch(s) to:: low back
Ondansetron Orally Disint [Zofran Odt (Orally Disintegrating)] 4 mg PO TIDPRN PRN nausea/vomiting
06/28/25 13:38
Activity As Directed
Activity Level: As Tolerated
Bedside Glucose Monitoring As Directed
Frequency: AC&HS
Additional Instructions:: Change to q6h if pt on TPN, tube feeding or not eating
Bladder Scan As Directed
Follow Bladder Retention/Intermittent Cath Algorithm?: Yes
PRN if no void in __ hours: 6
Frequency: Per Retention Algorithm
If Bladder Scan Result >: 400
then:: Straight cath
Straight Cath As Directed
Frequency: Per Retention Algorithm
Additional Instructions: straight cath as needed per acute urinary retention algorithm for 24 hrs
Additional Instructions: for bladder scan greater than 400 mL
Vital Signs As Directed
Frequency: Per unit guidelines
DX Deep Vein Thrombosis Video Routine
06/28/25 14:14
HYDROmorphone [Dilaudid] 1 mg IV Q4HPRN PRN
06/28/25 Dinner
Regular
At Your Request: Full Participation
Does patient need a safe tray?: No
Flush (0.9% Sodium Chloride) [Flush (Nss)] See Dose Instructions IV PER PROTOCOL
06/28/25 16:30
Insulin Aspart Corrective Low [Novolog Flexpen-Low Resistance] See Protocol SC AC
06/28/25 17:00
METFORMIN HCl [Glucophage] 1,000 mg PO BID@0800,1700
06/28/25 18:00
enzalutamide See Dose Instructions PO DAILY
relugolix See Dose Instructions PO DAILY
06/28/25 20:00
Heparin 5,000 units SC Q12
06/28/25 22:00
Amlodipine [Norvasc] 7.5 mg PO HS
Atorvastatin [Lipitor] 20 mg PO HS
Sennosides [Senokot] 17.2 mg PO HS
06/29/25 07:40
Complete Blood Count/With Diff IN AM
Comprehensive Metabolic Panel IN AM
Glycohemoglobin (HgbA1c) IN AM
06/29/25 08:00
Calcium Carbonate/Vitamin D3 [Oscal 500 + D] 500 mg PO DAILY
MethylPREDNISolone [Medrol] 20 mg PO ONCE ONE
Sennosides [Senokot] 25.8 mg PO DAILY
Tamsulosin [Flomax] 0.8 mg PO DAILY
06/29/25 08:10
Level of Care Change As Directed
Level of Care: Inpatient admission
Reason for Hospitalization: severe low back pain
Expected length of stay greater than two midnights?: Yes
ELOS- Estimated Length of Stay in days: 2
I certify the patient meets the requirements for IP care: Yes
06/30/25 08:00
MethylPREDNISolone [Medrol] 16 mg PO ONCE ONE
07/01/25 08:00
MethylPREDNISolone [Medrol] 12 mg PO ONCE ONE
07/02/25 08:00
MethylPREDNISolone [Medrol] 8 mg PO ONCE ONE
07/03/25 08:00
MethylPREDNISolone [Medrol] 4 mg PO ONCE ONE
Abnormal Lab Results
06/28/25 06/28/25 06/28/25
06:47 06:55 17:04
WBC 3.2 L 10^3/uL
(4.8-10.8)
RBC 3.76 L 10^6/uL
(4.70-6.10)
Hgb 11.1 L g/dL
(13.0-18.0)
Hct 30.9 L %
(39.0-52.0)
RDW 17.2 H %
(11.5-14.5)
Plt Count
Abs Immat Gran (auto) 0.1 H 10^3/uL
(0-0.05)
Absolute Lymphs (auto) 0.4 L 10^3/uL
(1.2-3.4)
Immature Gran % 1.9 H %
(0-0.5)
Lymphocytes % 11.4 L %
(20.5-51.1)
Monocytes % 12.0 H %
(1.7-9.3)
Sodium 129 L mmol/L
(135-145)
Chloride 97 L mmol/L
(98-107)
Glucose 232 H mg/dl
(70-99)
Calcium
AST 14 L U/L
(17-59)
Total Protein 6.2 L g/dl
(6.3-8.2)
Lipase 16 L U/L
(23-300)
Urine Glucose 3+ A
(Negative)
Urine Albumin (Reflex) 1+ A
(Neg - Trace)
POC Glucose 354 H mg/dl
(70-99)
06/28/25 06/29/25 06/29/25
21:32 07:06 07:40
WBC 2.6 L 10^3/uL
(4.8-10.8)
RBC 3.42 L 10^6/uL
(4.70-6.10)
Hgb 9.7 L g/dL
(13.0-18.0)
Hct 28.4 L %
(39.0-52.0)
RDW 17.3 H %
(11.5-14.5)
Plt Count 107 L D 10^3/uL
(130-400)
Abs Immat Gran (auto)
Absolute Lymphs (auto) 0.5 L 10^3/uL
(1.2-3.4)
Immature Gran % 1.5 H %
(0-0.5)
Lymphocytes % 17.9 L %
(20.5-51.1)
Monocytes % 13.7 H %
(1.7-9.3)
Sodium 131 L mmol/L
(135-145)
Chloride
Glucose 192 H mg/dl
(70-99)
Calcium 8.3 L mg/dl
(8.4-10.2)
AST 13 L U/L
(59)
Total Protein 5.6 L g/dl
(6.3-8.2)
Lipase
Urine Glucose
Urine Albumin (Reflex)
POC Glucose 311 H mg/dl 219 H mg/dl
(70-99) (70-99)
06/29/25 07:40
06/29/25 07:40
Vital Signs
Initial and Last Documented VS:
Initial Vital Signs
Temp Pulse Resp BP Pulse Ox
97.6 F 81 20 159/86 99
06/28/25 06:33 06/28/25 06:33 06/28/25 06:33 06/28/25 06:33 06/28/25 06:33
Last Documented Vital Signs
Temp Pulse Resp BP Pulse Ox
97.8 F 62 18 176/74 97
06/29/25 07:47 06/29/25 07:47 06/29/25 07:47 06/29/25 07:47 06/29/25 07:47
MDM/Problems Addressed
MDM/Problems Addressed:
MRI report from April 2025 available on patient portal on his phone reviewed: diffuse metastatic osseous lesions noted, with multilevel stenosis and bulging disks. No evidence of cauda equina findings noted on MRI. Patient currently does not
have any findings concerning for cauda equina syndrome. However, secondary to persistent pain despite administration of multiple pain medications, patient will be admitted for further evaluation and treatment.
*Pulse Oximetry
SaO2: 99
Oxygen Mode of Delivery: Room air
Patient hypoxic: no
*Critical Care Note
Total Time (30-74mins, 75-104mins- exclusive of procedures): Not Applicable
ED Attending Note
-
Portions of this chart may have been created with voice recognition software.� Occasional wrong word or��sound alike� substitutions may have occurred due to the inherent limitations of voice recognition software.
Discharge Plan
Departure
Patient Disposition: Admit
Date of Disposition: 06/28/25
Time of Disposition: 12:07
Admit to: Med/Surg
Presentation/result/management discussed w/ accepting MD/DO: Hospitalist
Discharge Problem:
Prostate cancer, Intractable back pain
Interventions
Interventions:
*General Assessment Last Done: 06/28/25 06:33
*Neglect/Abuse Screening Last Done: 06/28/25 06:33
*ED COVID-19 Vaccine History Last Done: 06/28/25 06:33
*ED Influenza Vaccine History Last Done: 06/28/25 06:33
[facility] Fall Risk Assessment Tool Last Done: 06/28/25 06:25
*Risk Screen - Suicide (C-SSRS) Last Done: 06/28/25 06:33
*Nursing Disposition Last Done: 06/28/25 17:05
ED-Male Genitourinary Assessment Last Done: 06/28/25 09:29
ED-Musculoskeletal Assessment Last Done: 06/28/25 09:29
Discharge Date and Time
Discharge Date/Time: 06/28/25 17:06
[2025-06-28 09:00] VITALS: BP 166/68
[2025-06-28] MEDS: DILAUDID 0.5 MG IV ×2 (09:24→11:57)
[2025-06-28] MEDS: NSS 250 IV (09:26)
[2025-06-28] MEDS: TORADOL 15 MG IV (09:26)
[2025-06-28] MEDS: TYLENOL 1000 MG PO (10:27)
[2025-06-28] MEDS: DECADRON 10 MG IV (10:27)
[2025-06-28] MEDS: VALIUM INJECTION 2 MG IV (10:28)
--- NOTE | 2025-06-28 12:46 | HPS.HSE ---
Family Physician
-
Family Physician: Beto Rodriugez
Chief Complaint
-
back pain
History of Present Illness
75-year-old male past medical history of metastatic prostate cancer status post radiation last treated 2 weeks ago, hypertension, type 2 diabetes, hyperlipidemia, presenting with worsening lower back pain. He has also had pain in his left hip
rating down his leg. Pain has been ongoing for few months. He has been undergoing radiation for bone metastases in the lumbar spine. He has received 5 sessions over. Pain improved after the initial sessions but got particularly bad after recent
radiation session.
He came to the emergency room 1 week ago was prescribed Percocet with improvement. Over the past 2 days he has had lower back pain and painful urination with sensation of incomplete voiding sensation. He has been having constipation but did have a
bowel movement yesterday after 5 days after taking senna. Denies abdominal pain. Denies nausea or vomiting. Denies weakness. Denies loss of sensation. Denies headache. Denies urinary or bowel incontinence. No fevers or chills.
He has been able to walk.
Denies smoking or alcohol use.
Medical History
Past Medical History
Past Medical History: Reports Other (metastatic prostate cancer status post radiation last treated 2 weeks ago, hypertension, type 2 diabetes, hyperlipidemia)
Past Surgical History: Reports None
Social History
Tobacco: Non-smoker
Alcohol: None
Drug: None
Family History
Family History: Not pertinent
Allergies / Home Medications
Allergies reflects when Allergies were last updated in [facility].
Home Medications with original date entered in [facility]
Allergy/Medication List:
Allergies
Allergy/AdvReac Type Severity Reaction Status Date / Time
No Known Allergies Allergy Verified 06/15/25 03:29
Home Medications
amlodipine 5 mg tablet 7.5 mg PO HS 05/22/19
tamsulosin 0.4 mg capsule 0.8 mg PO DAILY 03/03/23
metformin 1,000 mg tablet 1,000 mg PO BIDWMEAL #90 tabs 10/12/24
calcium 600 mg (as carbonate)-vit D3 20 mcg (800 unit) chewable tablet (Caltrate plus D) 1 tab PO DAILY 06/15/25
denosumab 120 mg/1.7 mL (70 mg/mL) subcutaneous solution (Xgeva) 120 mg SC [id number] 06/15/25
enzalutamide 80 mg tablet 160 mg PO DAILY 06/15/25
lorazepam 1 mg tablet 1 mg PO PRN PRN prior to scans or MRI's 06/15/25
ondansetron 4 mg disintegrating tablet 4 mg PO TIDPRN PRN nausea/vomiting #14 tabs 06/15/25
relugolix 120 mg tablet 120 mg PO DAILY 06/15/25
atorvastatin 20 mg tablet 20 mg PO HS 06/28/25
hydromorphone 2 mg tablet (Dilaudid) 2 mg PO Q6H PRN severe pain 06/28/25
ibuprofen 200 mg tablet 400 mg PO BID Pain 06/28/25
sennosides 8.6 mg tablet (senna) 17.2 mg PO HS Constipation 06/28/25
sennosides 8.6 mg tablet (senna) 25.8 mg PO DAILY 06/28/25
Review of Systems
-
History Source: Patient
A 12 point ROS was completed and negative except as noted: Yes
Constitutional: Reports No Symptoms
EENT: Reports No Symptoms
Respiratory: Reports No Symptoms
Cardiac: Reports No Symptoms
Abdomen/GI: Reports No Symptoms
: Reports No Symptoms
Musculoskeletal: Reports No Symptoms
Skin: Reports No Symptoms
Neurological: Reports No Symptoms
Endocrine: Reports No Symptoms
Hematologic/Lymphatic: Reports No Symptoms
Psych: Reports No Symptoms
Physical Exam
Vital Signs
Vital Signs
Temp Pulse Resp BP Pulse Ox
97.6 F 81 20 159/86 99
06/28/25 06:33 06/28/25 06:33 06/28/25 06:33 06/28/25 06:33 06/28/25 09:02
Physical Exam
General: Well Developed, Well Nourished and No Apparent Distress
HEENT: NormoCephalic, Moist mucous membranes and Atraumatic
Respiratory: Clear
Cardiac: S1/S2 and Regular Rhythm; No Murmur or Rub
GI: Soft, Non Tender, Non Distended and Normal Bowel Sounds; No Organomegaly
Rectal: Deferred by Provider
Musculoskeletal: No Clubbing, No Cyanosis, No Edema and Other (tender lower back)
Skin: No Rash
Neuro: Nonfocal/grossly intact
Laboratory Results
-
06/28/25 06:47
06/28/25 06:47
Laboratory Results
Total Bilirubin 1.0 mg/dl (0.2-1.3) 06/28/25 06:47
AST 14 U/L (17-59) L 06/28/25 06:47
ALT 13 U/L (0-50) 06/28/25 06:47
Alkaline Phosphatase 59 U/L (38-126) 06/28/25 06:47
Lipase 16 U/L (23-300) L 06/28/25 06:47
Data Reviewed
-
Lab Data: Labs Reviewed by me
Old Records: Reviewed
Impression/Plan
-
IMPRESSION:
PLAN:
# Severe lower back pain secondary to lumbar metastatic lesions from prostate cancer/L4-L5 right paracentral disc protrusion/spinal stenosis
# Left hip bony metastasis
- MRI from 05/17 shows patchy and confluent sclerotic metastatic lesions throughout the lumbar spine and sacrum, L3-L4 mild to moderate central canal narrowing, bilateral lateral recess stenosis, L4-L5 annular bulge and right paracentral disc
protrusion, moderate central canal stenosis, right lateral recess stenosis compressing the descending right L4 nerve root, severe right foraminal stenosis compressing L4 nerve root, L5-S1 mild to moderate central canal narrowing,
- Lumbar x-ray from 06/18 shows numerous blastic osseous lesions throughout the spine and pelvic structures consistent with osseous metastatic disease
- Tylenol, ketorolac, Dilaudid increased to 1 mg, diazepam, dexamethasone, lidocaine patch, ice pack
-Continue Medrol Dosepak
- PT OT
# Dysuria
- Urinalysis unremarkable
-Bladder scan only showed minimal urinary retention
- Bladder scan
# Ongoing constipation
- Continue senna
Metastatic prostate cancer status post radiation
- Continue enzalutamide, Relugolix
- Continue tadalafil, tamsulosin
Chronic anemia
- Stable
Chronic leukopenia
- Stable
Essential hypertension
- Continue Motifene
Type 2 diabetes
- Continue metformin
- Insulin sliding scale
Hyperlipidemia
- Continue statin
Osteoporosis
- On Xgeva
Anxiety
- Continue Ativan
Full code
DVT prophylaxis�heparin
Regular diet
[2025-06-28] MEDS: LIDOCAINE 4% PATCH 1 PATCH TOPICAL (14:39)
[2025-06-28] MEDS: DILAUDID 1 MG IV ×2 (15:11→20:07)
--- NOTE | 2025-06-28 15:29 | EDCM ---
Reviewed chart and met with pt and son bedside in ED. Lives with his and son in [address] [place], [address] [place].
Independent in ADLs, personal care and ambulation. Uses cane or furniture surfs.
PMH includes Metastatic prostate cancer, last radiation treatment 2 weeks ago, HTN, NIDDM, HLD
DUMONT reviewed and signed.
Confirms prescription coverage.
No hx HH but does have a nurse who comes to the home every 3 months for Bone med injection.
No hx SNF
Pt requesting Palliative Care consult, Dr Calle notified.
PCP: Beto Rodriguez
Pharmacy: [facility]
Discharge disposition pending ongoing medical evaluation, CM will continue to follow for all discharge planning needs.
[2025-06-28 16:59] VITALS: BP 168/70
[2025-06-28 17:16] LABS: Glucose - Point of Care 354 mg/dl (70-99)
[2025-06-28] MEDS: TYLENOL 650 MG PO (17:29)
[2025-06-28] MEDS: TORADOL 10 MG IV ×2 (17:29→23:29)
--- NOTE | 2025-06-28 17:38 | PTCARENOTE ---
Received pt from ED via stretcher. Pt AAOX3. Pox: 96-98% RA. Pt c/o lower back pain 01/06. Medicated with Toradol IV and Tylenol PO. See AUG. Bed alarm on. Family at bedside. Call [facility] within reach. Plan of care ongoing.
[2025-06-28 18:07] VITALS: BP 155/75
[2025-06-28] MEDS: NON-FORMULARY ITEM PO ×2 (18:10)
[2025-06-28] MEDS: GLUCOPHAGE 1000 MG PO (18:11)
[2025-06-28] MEDS: NOVOLOG FLEXPEN-LOW RESISTANCE 5 UNITS SC (18:11)
[2025-06-28] MEDS: HEPARIN 5000 UNITS SC (20:07)
[2025-06-28 21:44] LABS: Glucose - Point of Care 311 mg/dl (70-99)
[2025-06-28 23:00] VITALS: BP 156/73
[2025-06-28] MEDS: LIPITOR 20 MG PO (23:16)
[2025-06-28] MEDS: NORVASC 7.5 MG PO (23:16)
[2025-06-28] MEDS: SENOKOT 17.2 MG PO (23:17)
[2025-06-29] MEDS: DILAUDID 1 MG IV ×2 (03:15→08:40)
[2025-06-29] MEDS: TORADOL 10 MG IV (06:43)
[2025-06-29 07:17] LABS: Glucose - Point of Care 219 mg/dl (70-99)
[2025-06-29 07:47] VITALS: BP 176/74
[2025-06-29 08:06] LABS: Hematocrit 28.4 % (39.0-52.0); Hemoglobin 9.7 g/dL (13.0-18.0); Mean Corp Hgb Conc. 34.2 g/dL (33.0-37.0); Mean Corpuscular Volume 83.0 fL (80.0-94.0); Nucleated Red Blood Cells % 0 % (-); Platelet Count 107 10^3/uL (130-400); Red Cell Dist. Width 17.3 % (11.5-14.5)
[2025-06-29 08:34] LABS: ALT (SGPT) 12 U/L (0-50); AST (SGOT) 13 U/L (17-59); Albumin 3.6 g/dl (3.5-5.0); Alkaline Phosphatase 53 U/L (38-126); Blood Urea Nitrogen 19 mg/dl (9-20); Calcium 8.3 mg/dl (8.4-10.2); Carbon Dioxide 26 mmol/L (22-30); Chloride 102 mmol/L (98-107); Estimated Creatinine Clearance 88 ml/min; Glucose 192 mg/dl (70-99); Potassium 4.1 mmol/L (3.5-5.1); Sodium 131 mmol/L (135-145); Total Protein 5.6 g/dl (6.3-8.2); eGFR > 60.00
[2025-06-29] MEDS: HEPARIN 5000 UNITS SC (08:37)
[2025-06-29] MEDS: SENOKOT 25.8 MG PO (08:37)
[2025-06-29] MEDS: NON-FORMULARY ITEM 120 MG PO (08:37)
[2025-06-29] MEDS: NON-FORMULARY ITEM 160 MG PO (08:37)
[2025-06-29] MEDS: GLUCOPHAGE 1000 MG PO ×2 (08:37→17:42)
[2025-06-29] MEDS: OSCAL 500 + D 500 MG PO (08:37)
[2025-06-29] MEDS: FLOMAX 0.8 MG PO (08:37)
[2025-06-29] MEDS: LIDOCAINE 4% PATCH 1 PATCH TOPICAL (08:38)
[2025-06-29] MEDS: MEDROL 20 MG PO (08:40)
[2025-06-29] MEDS: NOVOLOG FLEXPEN-LOW RESISTANCE 2 UNITS SC (08:42)
[2025-06-29 10:45] LABS: Glycohemoglobin (HgbA1c) 6.2 % (4.0-5.9)
[2025-06-29 11:29] LABS: Glucose - Point of Care 344 mg/dl (70-99)
--- NOTE | 2025-06-29 11:55 | W.PN.HOSP.TC ---
Addendum entered and electronically signed by Zhang Day MD 06/29/25 17:43:
Prolonged discussion with the patient. He states he wants to go home. Patient said he does not have back pain currently. States at home he will decrease the frequency of how often he will take p.o. pain medication. States he will take 2 mg
every 4 hours for moderate pain and if it severe pain will take 4 mg if needed. Also recommended aggressive bowel regimen. Patient insist that he does well at home with mobility and does not want to stay in the hospital any further. States if
anything he will do outpatient physical therapy if needed. Patient was tolerating diet. Passing flatulence. No nausea or vomiting. Recommend to follow-up with primary doctor and Perative care.
More than 30 minutes spent in discharge including
Final examination of the patient
Summarizing hospital stay
Instructions for continuing care to all relevant caregivers
Preparation of discharge records, prescriptions, and referral forms
Total time spent (in minutes): 55
Original Note:
Today's Communication/Plan
-
pain control
Steroids/toradolol
bowel regimen
PT eval
Assessment / Plan
Assessment / Plan
General: Well Developed, Well Nourished and No Apparent Distress
HEENT: NormoCephalic, Moist mucous membranes and Atraumatic
Respiratory: Clear
Cardiac: S1/S2 and Regular Rhythm; No Murmur or Rub
GI: Soft, Non Tender, Non Distended and Normal Bowel Sounds; No Organomegaly
Rectal: Deferred by Provider
Musculoskeletal: No Clubbing, No Cyanosis, No Edema a
Skin: No Rash
Neuro: Nonfocal/grossly intact
# Severe lower back pain secondary to lumbar metastatic lesions from prostate cancer/L4-L5 right paracentral disc protrusion/spinal stenosis
# Left hip bony metastasis
- MRI from 05/17 shows patchy and confluent sclerotic metastatic lesions throughout the lumbar spine and sacrum, L3-L4 mild to moderate central canal narrowing, bilateral lateral recess stenosis, L4-L5 annular bulge and right paracentral disc
protrusion, moderate central canal stenosis, right lateral recess stenosis compressing the descending right L4 nerve root, severe right foraminal stenosis compressing L4 nerve root, L5-S1 mild to moderate central canal narrowing,
- Lumbar x-ray from 06/18 shows numerous blastic osseous lesions throughout the spine and pelvic structures consistent with osseous metastatic disease
- Tylenol, ketorolac, Dilaudid increased to 1 mg, diazepam, lidocaine patch, ice pack. May be will benefit from oxycontin ?
-Continue Medrol Dosepak
-Palliative care consult
# Dysuria
- Urinalysis unremarkable
-Bladder scan only showed minimal urinary retention
- Bladder scan
# Constipation
- Continue senna. Added miralax.
Metastatic prostate cancer status post radiation
- Continue enzalutamide, Relugolix
- Continue tadalafil, tamsulosin
-Completed radiation treatment
Chronic anemia
- Stable
Chronic leukopenia
- Stable
Essential hypertension
- Continue Motifene
Type 2 diabetes
- Continue metformin
- Insulin sliding scale
Hyperlipidemia
- Continue statin
Osteoporosis
- On Xgeva
Anxiety
- Continue Ativan
Full code
DVT prophylaxis�heparin
d/w with spouse at bedside
Anticipated Discharge: Within 24 hours
Subjective/Interval History
-
Date of Service: June 29, 2025
States back pain has improved
voiding has improved
states feeling constipated
Objective Data
-
Labs:
Laboratory Results
06/29/25
07:40
WBC 2.6 L
Hgb 9.7 L
Hct 28.4 L
Plt Count 107 L D
Sodium 131 L
Potassium 4.1
Chloride 102
Carbon Dioxide 26
BUN 19
Creatinine 0.7
Glucose 192 H
Calcium 8.3 L
Total Bilirubin 1.0
AST 13 L
ALT 12
Alkaline Phosphatase 53
Vital Signs:
Vital Signs
Temp Pulse Resp BP Pulse Ox
97.8 F 62 18 176/74 97
06/29/25 07:47 06/29/25 07:47 06/29/25 07:47 06/29/25 07:47 06/29/25 07:47
I&O
06/28/25 06/29/25 06/30/25
06:59 06:59 06:59
Intake Total 300 / 300
Balance 300 / 300
Data Reviewed
-
Total Time Spent with Patient (in minutes): 55
[2025-06-29] MEDS: NOVOLOG FLEXPEN-LOW RESISTANCE 4 UNITS SC (13:06)
[2025-06-29] MEDS: MIRALAX 17 GRAMS PO (13:06)
[2025-06-29 15:23] VITALS: BP 136/74
--- NOTE | 2025-06-29 15:24 | W.CON.PAL ---
Consultation
-
Date/Time Consultation Requested: 06/29
Date/Time Consultation Performed: 06/29
Performing Provider: Shaneka Ohara
Reason for Consult: Symptom & Pain Management
Reason for Admission
Illness Course/HPI
75 year old M with recently diagnosed metastatic prostate cancer to bone. Dx Feb 2025. Follows Dr. Anitha Zavala at [facility]. Started on hormone therapy and is s/p radiation completed 06/14 to the spine and femur. With ongoing pain, worsened after
radiation. Initially taking oxycodone then changed to dilaudid. Admitted with urinary issues likely from constipation from opioids.
Seen at bedside with spouse and son present, daughter via phone. States he was taking oxycodone then dilaudid q6 but wasnt last long enough. Dilaudid worked better than oxycodone. Usually only lasted about 4 hours. Constipation issues which turned
into urinary issues. Has been getting 1mg iv dilaudid in the hospital which is more helpful - conversion of this is ~4mg po dilaudid, was only getting 2mg at home. Discussed likely need for long acting opioid but for discharge can do 4mg po q4 prn
and follow up scheduled in office for 07/11 to assess further needs. Discussed more aggressive bowel regimen.
please disharge patient with script to make it until 07/11.
Objective Data
-
Objective Data:
Vital Signs
Temp Pulse Resp BP Pulse Ox
97.8 F 81 17 136/74 98
06/29/25 15:23 06/29/25 15:23 06/29/25 15:23 06/29/25 15:23 06/29/25 15:23
Laboratory Results
06/29/25 07:40
06/29/25 07:40
Hemoglobin A1c 6.2 % (4.0-5.9) H 06/29/25 07:40
Total Protein 5.6 g/dl (6.3-8.2) L 06/29/25 07:40
Albumin 3.6 g/dl (3.5-5.0) 06/29/25 07:40
Urine Color Yellow 06/28/25 06:55
Urine Clarity Clear (Clear) 06/28/25 06:55
Urine pH 5.0 (5.0-9.0) 06/28/25 06:55
Ur Specific Gerber 1.020 (<1.030) 06/28/25 06:55
Urine Ketones Negative (Negative) 06/28/25 06:55
Urine Bilirubin Negative (Negative) 06/28/25 06:55
Palliative Performance Scale
Palliative Performance Scale:
PPS Level Ambulation Activity & Evidence of Disease Self Care Intake Conscious Level
100% Full Normal Activity & Work; Full Intake Full
No Evidence of Disease
90% Full Normal Activity & Work; Full Normal Full
Some Evidence of Disease
80% Full Normal Activity with Effort Full Normal or Full
Some Evidence of Disease Reduced
70% Reduced Unable Normal Job/Work Full Normal or Full
Significant Disease Reduced
60% Reduced Unable Hobby/Housework Occasional Normal or Full or Confusion
Significant Disease Assistance Reduced
50% Mainly Sit/Lie Unable to do Any Work Considerable Normal or Full or Confusion
Extensive Disease Assistance Req'd Reduced
40% Mainly in Bed Unable to do Most Activity Mainly Assistance Normal or Full or Drowsy;
Extensive Disease Reduced +/- Confusion
30% Totally Bed Unable to do Any Activity Total Care Normal or Full or Drowsy;
Bound Extensive Disease Reduced +/- Confusion
20% Totally Bed Bound Unable to do Any Activity Total Care Minimal to Full or Drowsy;
Extensive Disease Sips +/- Confusion
10% Totally Bed Bound Unable to do Any Activity Total Care Mouth Care Drowsy or Coma;
Extensive Disease Only +/- Confusion
0%
PPS Score Level:
Physical Exam
-
General: No Apparent Distress and Pain
HEENT: Normocephalic
Respiratory: Clear to Auscultation
Cardiac: Regular Rhythm
GI: Soft
Skin: Warm
Neuro: AO x 3
Assessment / Plan
-
Assessment/Plan:
75 year old with metastatic prostate cancer
- dilaudid 4mg po q4 prn for discharge
- follow up in clinic 07/11 1pm to assess further needs
- discussed with primary team
Care Reviewed
Data Reviewed
Radiology procedure: Report Reviewed
Medical Tests: I reviewed
Reviewed with: Patient, Family and Physician
[2025-06-29 16:30] VITALS: BP 171/83
[2025-06-29 16:50] LABS: Glucose - Point of Care 277 mg/dl (70-99)
[2025-06-29] MEDS: NOVOLOG FLEXPEN-LOW RESISTANCE 3 UNITS SC (17:42)
--- NOTE | 2025-06-29 17:43 | W.DCSUMMARY ---
Discharge Summary
Discharge Data
Date of Admission: 06/29/25
Date of Discharge: 06/29/25
-
Pending Results: No
Hospital Course
75-year-old male past medical history of prostate cancer with metastasis status post radiation on chemotherapy, anemia, hypertension, diabetes mellitus, hyperlipidemia, osteoporosis, anxiety was presented with back pain. Patient was severe back
pain. Patient was started on multiple modalities of pain medication and anti-inflammatory medication. Patient pain significantly improved. UA analysis unremarkable. Patient was not retaining much urine. Aggressive bowel regimen was started.
Patient pain significantly improved. Recommended prednisone anti-inflammatory. Palliative care was consulted. Pain medications were adjusted. Prolonged discussion with the patient. He states he wants to go home. Patient said he does not have
back pain currently. States at home he will decrease the frequency of how often he will take p.o. pain medication. States he will take 2 mg every 4 hours for moderate pain and if it severe pain will take 4 mg if needed. Also recommended
aggressive bowel regimen. Patient insist that he does well at home with mobility and does not want to stay in the hospital any further. States if anything he will do outpatient physical therapy if needed. Patient was tolerating diet. Passing
flatulence. No nausea or vomiting. Recommend to follow-up with primary doctor and palliative care.
Portions of this chart may have been created with voice recognition software.� Occasional wrong word or �sound alike� substitutions may have occurred due to the inherent limitations of voice recognition software.
Discharge Plan
-
Patient Disposition: Home (Routine Discharge)
Discharge Diagnosis/Procedures: Intractable lower back pain due to prostrate cancer with mets
Condition: Fair
Diet: Regular
Activity: As tolerated
Driving Restrictions: Not until seen by your Dr
Referrals:
Shaneka Ohara NP [Specified Professional Personl, Palliative Care] - 07/11/25 1:00 pm
Referral Note: call to confirm timing
Beto Rodriguez MD [Family Provider, Internal Medicine] - in less than 1 week
Additional Discharge Medication Instructions: Recommend taking Dilaudid 2 mg p.o. every 4 as needed for moderate pain
Recommend taking Dilaudid 4 mg p.o. every 4 hours for severe breakthrough pain only.
Prescriptions:
New
acetaminophen 325 mg Tablet
650 mg PO Q4HPRN PRN (Reason: mild pain) Qty: 30 0RF
polyethylene glycol 3350 17 gram Powder In Packet
17 g PO DAILY Qty: 30 0RF
prednisone 10 mg Tablet
See Rx Instructions .ROUTE .COMPLEX Qty: 20 0RF
Rx Instructions:
Take By Mouth:
40 mg daily x2 days, 30 mg daily x2 days,
20 mg daily x2 days, 10 mg daily x2 days.
naloxone [Narcan] 4 mg/actuation spray,non-aerosol
4 mg intranasal Q3M PRN (Reason: opioid overdose) Qty: 2 0RF
Continued
amlodipine 5 MG tablet
7.5 mg PO HS
tamsulosin 0.4 mg Capsule
0.8 mg PO DAILY
metformin 1,000 mg tablet
1,000 mg PO BIDWMEAL Qty: 90 6RF
lorazepam 1 mg Tablet
1 mg PO PRN PRN (Reason: prior to scans or MRI's)
Xgeva 120 mg/1.7 mL (70 mg/mL) Solution
120 mg SC .[id number]
Caltrate 600 plus D 600 mg-20 mcg (800 unit) Tablet,Chewable
1 tab PO DAILY
enzalutamide 80 mg Tablet
160 mg PO DAILY
relugolix 120 mg Tablet
120 mg PO DAILY
ondansetron 4 mg tablet,disintegrating
4 mg PO TIDPRN PRN (Reason: nausea/vomiting) Qty: 14 0RF
sennosides [senna] 8.6 mg Tablet
25.8 mg PO DAILY
sennosides [senna] 8.6 mg Tablet
17.2 mg PO HS
atorvastatin 20 mg tablet
20 mg PO HS
ibuprofen 200 mg Tablet
400 mg PO BID
Changed
hydromorphone [Dilaudid] 2 mg tablet
4 mg PO Q4HPRN PRN (Reason: severe pain) Qty: 60 0RF
Discharge Orders:
Discharge Patient (As Directed); Ordered 06/29/25
Ordered By: Zhang Day
Discharge Date and Time
Print Language: SLOVAK
--- NOTE | 2025-06-29 17:46 | W.[place]-PDMP ---
[place]PD[place]
-
Checked the [place]- Pres[place] Drug Monitoring Program website, no red flags identified; safe to proceed with prescription.
[2025-06-29] MEDS: CITROMA 300 ML PO (18:26)
[2025-06-29] MEDS: DILAUDID 4 MG PO (19:27)
[2025-06-29 19:45] VITALS: BP 188/81
[2025-06-29 19:58] LABS: Glucose - Point of Care 212 mg/dl (70-99)
== END 2025-06-29 19:55 | disposition home health service (06) | DRG 948 ==
LOC: 1 ACUTE 08:10
PROVIDERS: Emergency Medicine; ADMITTING PHYSICIAN Hospitalist; ATTENDING PHYSICIAN Hospitalist; EMERGENCY PHYSICIAN Emergency Medicine; FAMILY PHYSICIAN Internal Medicine
DX: G89.3 Neoplasm related pain (acute) (chronic) (principal); C79.51 Secondary malignant neoplasm of bone; M54.50 Low back pain, unspecified; C61 Malignant neoplasm of prostate; E11.9 Type 2 diabetes mellitus without complications; E78.5 Hyperlipidemia, unspecified; I10 Essential (primary) hypertension; D63.0 Anemia in neoplastic disease; K59.03 Drug induced constipation; T40.2X5A Adverse effect of other opioids, initial encounter; D72.819 Decreased white blood cell count, unspecified; M81.0 Age-related osteoporosis without current pathological fracture; F41.9 Anxiety disorder, unspecified; R30.0 Dysuria; M48.00 Spinal stenosis, site unspecified; Z92.3 Personal history of irradiation; Z79.84 Long term (current) use of oral hypoglycemic drugs; Z79.899 Other long term (current) drug therapy
CPT/HCPCS: 51798; 80053; 81003; 81015; 82962; 83036; 83690; 85025; 87502; 96374; 96375; 97162; 99285